=== PATIENT | male | born 1965 | race Caucasian/White ===

== ENCOUNTER 2024-10-03 12:07 | Emergency (ER) | payer OTHER, SELFPAY ==
[2024-10-03 12:28] VITALS: BP 148/94; PULSE 82; RESP 16; TEMP 36.6; O2SAT 98
--- NOTE | 2024-10-03 12:44 | ED.WOUNDLAC ---
HPI - Wound/Laceration General Chief Complaint: Wound/Laceration Stated Complaint: Right hand skin abrasion Time Seen by Provider: 10/03/24 12:46 Source: patient Mode of arrival: ambulatory Limitations: no limitations History of Present Illness HPI narrative: 59-year-old male presented for c/o a dry wound to the right hand for 2 weeks. Now reports swelling and redness over the past few days. States it started as shingles and has been itchy, pt has been scratching the hand. Has applied neosporin. Related Data Home Medications Medication Instructions Recorded Confirmed albuterol sulfate 90 mcg/actuation inhalation 10/03/24 aerosol inhaler aspirin 81 mg tablet,delayed mg 10/03/24 release atorvastatin 80 mg tablet mg 10/03/24 bupropion HCl 150 mg 24 hr tablet, mg PO 10/03/24 extended release clopidogrel 75 mg tablet mg 10/03/24 lisinopril 40 mg tablet mg 10/03/24 Allergies Allergy/AdvReac Type Severity Reaction Status Date / Time No Known Allergies Allergy Verified 10/03/24 12:27 Review of Systems Review of Systems: CONSTITUTIONAL: Denies body aches, fever, chills, or sweats. CARDIOVASCULAR: Denies chest pain, palpitations, or edema. GASTROINTESTINAL: Denies abdominal pain, nausea, vomiting, or diarrhea. SKIN: per HPI MUSCULOSKELETAL: Denies back pain, joint pain, or myalgia. NEUROLOGIC: Denies headache, numbness, tingling, or weakness. PMFSH Comments At time of signature, I have reviewed and agree with nursing past medical, surgical, social and family history unless otherwise noted. Please see nursing chart for further information. There is no relevant family history pertinent to the presenting complaint Exam Narrative: GENERAL: Well-appearing ENT: Mucous membranes moist. CHEST: Audible wheezing noted. HEART: Regular rate and rhythm. SKIN: Warm, dry. right dorsal hand with approximately 6 cm area of erythema and swelling, skin is dry and crusted. CMS intact. NEURO: Alert and oriented x3. Course Course Emergency Course: Patient is aware of diagnosis, understands and agrees to treatment plan. Anticipatory guidance given. Patient agrees to follow-up as directed and is aware of reasons to seek care at the emergency department. Portions of this record may have been created with voice recognition software Level of Care: Express Care Visit Vital Signs Vital signs: Vital Signs Temperature 97.8 F 10/03/24 12:28 Pulse Rate 82 10/03/24 12:28 Respiratory Rate 16 10/03/24 12:28 Blood Pressure 148/94 H 10/03/24 12:28 Pulse Oximetry 98 10/03/24 12:28 Oxygen Delivery Room Air 10/03/24 12:28 Temperature 97.8 F 10/03/24 12:28 Pulse Rate 82 10/03/24 12:28 Respiratory Rate 16 10/03/24 12:28 Blood Pressure 148/94 H 10/03/24 12:28 Pulse Oximetry 98 10/03/24 12:28 Oxygen Delivery Room Air 10/03/24 12:28 Reviewed MDM - Wound/Laceration MDM Narrative Medical decision making narrative: Discussed physical exam findings most c/w cellulitis 2/2 eczema. Advised supportive measures and signs/symptoms to go to the ER. Pt is appropriate for outpt treatment and f/u. Differential Diagnosis Differential diagnosis: Likely other ( Viral exanthema, contact dermatitis, allergic dermatitis, eczema, urticaria, insect bites, impetigo, tinea, folliculitis) Lab Data Lab results narrative: Discharge Plan Discharge Clinical Impression: Cellulitis Patient Disposition: Home, Self-Care Condition: Stable Instructions: Antibiotic Form, Cellulitis (ED) Additional Instructions: Keep the area clean and dry - cleanse daily with warm water and mild soap and allow to fully dry. apply the ointment as directed to the site Keep it open to air (no bandages unless the site is draining) take antibiotic as directed Tylenol as needed for pain Watch for worsening symptoms including pain, redness, swelling, streaking, pus/drainage, fever. Go to the ER with any of these symptoms or concerns. Follow up with primary care provider in 1 week, call to schedule an appointment Prescriptions: New cephalexin 500 mg capsule 500 mg PO Q8H 7 Days Qty: 21 0RF mupirocin 2 % ointment 1 applic topical BID 14 Days Qty: 22 0RF No Action atorvastatin 80 mg tablet clopidogrel 75 mg tablet aspirin 81 mg tablet,delayed release (DR/EC) albuterol sulfate 90 mcg/actuation HFA aerosol inhaler INHALATION lisinopril 40 mg tablet bupropion HCl 150 mg tablet extended release 24 hr PO Follow-up/Referrals: Daisy,Le Velasco APN [Primary Care Provider] -
== END 2024-10-03 13:00 | disposition home or self-care (01) ==
PROVIDERS: Emergency Provider Nurse Practitioner Family; PCP Nurse Practitioner Family
DX: L03.113 Cellulitis of right upper limb (principal); E78.00 Pure hypercholesterolemia, unspecified; I10 Essential (primary) hypertension; I25.2 Old myocardial infarction
CPT/HCPCS: 99213; G0463